=== PATIENT | male | born 1995 | race Two or more races ===

== ENCOUNTER 2022-04-10 21:08 | Emergency (ER) | payer MEDICAID ==
[~2022-04-10] VITALS: Ht 175.3 cm; Wt 68.0 kg
[2022-04-10 21:17] VITALS: BP_SYST 142
[2022-04-10 21:47] LABS: BASOPHILS # (AUTO) 0.1 K/uL (0.0-0.2); BASOPHILS % (AUTO) 0.8 % (0.0-2.0); EOSINOPHILS # (AUTO) 0.1 K/uL (0.0-0.4); EOSINOPHILS % (AUTO) 1.2 % (0.0-4.0); HEMATOCRIT 39.8 % (36-54); LYMPHOCYTES # (AUTO) 2.4 K/uL (1.0-5.5); LYMPHOCYTES % (AUTO) 27.5 % (20.5-51.5); MEAN CORPUSCULAR HEMOGLOBIN 29 pg (27-31); MEAN CORPUSCULAR HGB CONC 35 % (32-36); MEAN CORPUSCULAR VOLUME 82 fL (79.0-98.0); MONOCYTES # (AUTO) 0.5 K/uL (0.0-1.0); MONOCYTES % (AUTO) 5.6 % (1.7-9.3); NEUTROPHILS # (AUTO) 5.7 K/uL (1.8-7.7); NEUTROPHILS % (AUTO) 64.9 % (40.0-70.0); PLATELET COUNT (AUTO) 330 K/uL (130-430); RED BLOOD CELL COUNT(AUTO) 4.88 MIL/uL (4.2-6.2); RED CELL DISTRIBUTION WIDTH 12.9 % (9.0-15.0); WHITE BLOOD COUNT (AUTO) 8.8 K/uL (4.8-10.8)
--- NOTE | 2022-04-10 22:29 | NUR ---
Placed in room 03 . Placed on awake overnight monitor, blood pressure machine and pulse oximeter. To gown for exam. Side rails up. Report given to KIRSTEN Morales
--- NOTE | 2022-04-10 22:52 | NUR ---
PT COMES IN WITH CC OF CHEST PAIN THAT STARTED EARLIER TODAY, PT STATES IT IS MORE PRESSURE LIKE, NON RADIATING. 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 WILL CONTINUE TO MONITOR.
[2022-04-10 23:06] LABS: CALCIUM 9.4 mg/dL (8.4-11.0); CREATININE 1.16 mg/dL (0.55-1.30); POTASSIUM 3.3 mmol/L (3.5-5.1)
[2022-04-10 23:12] LABS: ALBUMIN 3.8 g/dL (3.4-4.8); TOTAL BILIRUBIN 0.4 mg/dL (0.0-1.0)
[2022-04-10 23:34] LABS: INR 7.7 (0.80-1.20); PROTHROMBIN TIME 68.3 SECS (9.5-12.5)
[2022-04-10] MEDS ORDERED: methylPREDNISolone SOD SUCC/PF 62.5 MG/ML VIAL IVP ONE (23:45)
[2022-04-11 04:14] LABS: INR 1.1 (0.80-1.20); PROTHROMBIN TIME 10.9 SECS (9.5-12.5)
[2022-04-11 04:44] VITALS: BP_SYST 123
[2022-04-11] MEDS ORDERED: PRED20TA PO (04:45)
== END 2022-04-11 04:55 | disposition home or self-care (01) ==
LOC: SED 21:08
DX: J20.9 Acute bronchitis, unspecified (principal); R07.9 Chest pain, unspecified; R05.9 Cough, unspecified; R51.9 Headache, unspecified; Z79.899 Other long term (current) drug therapy; Z20.822 Contact with and (suspected) exposure to COVID-19
CPT/HCPCS: 99285; 71045; 87426; 80053; 85025; 85379; 85610; 85730; 84484; 36415; 93005; 96374; J2930